=== PATIENT | male | born 1975 | race Caucasian/White ===

== ENCOUNTER 2023-02-22 08:10 | Day surgery (SDC) | payer OTHER, SELFPAY ==
[2023-02-22 08:28] VITALS: BP 142/80; PULSE 89; RESP 16; TEMP 36.6; O2SAT 100; BMI 23.2
--- NOTE | 2023-02-22 09:10 | P.HP_ITS ---
History of Present Illness History of Present Illness Date Patient Seen: 02/22/23 Time Patient Seen: 09:10 Chief complaint: Colonoscopy Narrative: Jeison is a 47-year-old man here for a screening colonoscopy. He has never had a colonoscopy before. He has no family history of colon cancer. He has early hypertension and takes losartan. No abnormalities with bowel function. PFSH Medical History (Updated 02/22/23 @ 09:11 by Scott Jimenez MD) Hepatitis A Hypertension Surgical History (Updated 02/22/23 @ 08:26 by Boris Matias RN) [place] teeth extracted Social History household members: spouse Smoking Status: Never smoker alcohol intake: current Meds Home Medications and Allergies Home Medications Medication Instructions Recorded Confirmed Type hydrochlorothiazide 25 mg PO DAILY 02/22/23 02/22/23 History valsartan 80 mg PO DAILY 02/22/23 02/22/23 History Allergies Allergy/AdvReac Type Severity Reaction Status Date / Time No Known Allergies Allergy Verified 02/22/23 08:23 Exam Vital Signs (past 8 hours): - 02/22/23 08:28 Temperature 97.9 F Pulse Rate 89 Respiratory Rate 16 Blood Pressure 142/80 H Pulse Oximetry 100 Oxygen Delivery Method Room Air Oxygen Delivery Method Room Air Const General: No acute distress Resp Effort & Inspection: normal respiratory effort Assessment & Plan Assessment and plan (1) Colon cancer screening: Status: Acute Plan We reviewed the risks and benefits of colonoscopy for colon cancer screening and he would like to proceed.
--- NOTE | 2023-02-22 09:52 | PM.OP.COLON ---
Operative Date/Time/Diagnoses Date of procedure: 02/22/23 Time of procedure: 09:52 Pre-op diagnosis: Colon cancer screening Post-op diagnosis: same Procedure & Clinicians Study performed: Colonoscopy Same procedure as scheduled: Yes Surgeon: Scott Jimenez Procedure Notes Procedure in detail: Surgeon: Scott Jimenez MD Anesthesia: Major Yang CRNA Procedure: The patient was brought to the endoscopy suite, placed in left lateral decubitus position. The patient was connected to monitoring devices. A time-out was performed. Sedation was administered. Once the patient was adequately sedated, a digital rectal exam was performed and was normal. The scope was then inserted and advanced to the cecum where the appendiceal orifice was identified and photographed. The scope was then slowly withdrawn over greater than 6 minutes. The mucosa was thoroughly inspected. No abnormalities were seen. The scope was retroflexed in the rectum. No abnormalities were seen. The scope was straightened and removed. The patient was awakened and brought to recovery. Scope withdrawal time: 8 minutes Sedation time: 12 minutes EBL: 0 Findings: Normal colon Post-procedure Recommendations: Colonoscopy in 10 years Disposition: PACU
[2023-02-22 09:53] VITALS: BP 124/66; PULSE 85; RESP 16; TEMP 36.2; O2SAT 90
[2023-02-22 09:58] VITALS: BP 128/64; PULSE 92; RESP 16; O2SAT 96
--- NOTE | 2023-02-22 10:01 | SUR.PHASEI ---
Received to PACU after MAC. Airway patent, self maintained. Report received from ARPIT Berry and RISHI Gonsalves.
[2023-02-22 10:03] VITALS: BP 128/73; PULSE 990; RESP 19; O2SAT 96
[2023-02-22 10:08] VITALS: BP 144/87; PULSE 83; RESP 18; O2SAT 97
[2023-02-22 10:11] VITALS: BP 134/82; PULSE 83; RESP 96; TEMP 36.6; O2SAT 12
== END 2023-02-22 10:30 | disposition home or self-care (01) ==
PROVIDERS: Referring Provider Surgery; Visit Provider Surgery
PROC: 0DJD8ZZ Inspection of Lower Intestinal Tract, Via Natural or Artificial Opening Endoscopic (ICD-10-PCS; CPT 45378; principal; 2023-02-22 09:15)
DX: Z12.11 Encounter for screening for malignant neoplasm of colon (principal)
CPT/HCPCS: 45378; J2704